=== PATIENT | female | born 1935 | race Caucasian/White ===

== ENCOUNTER 2018-01-10 13:19 | Emergency (ER) | payer MEDICARE, BC ==
[~2018-01-10] VITALS: Ht 170.2 cm; Wt 88.5 kg
[2018-01-10] MEDS ORDERED: DIPHTH/TETANUS/ACEL. PERTUSSIS 0.5 ML SYR IM ONE (13:45)
[2018-01-10] MEDS ORDERED: ASPIR 8181 MG (13:48)
[2018-01-10] MEDS ORDERED: NORVASC5 MG PO (13:48)
[2018-01-10] MEDS ORDERED: MULTI-VITAMIN1 EACH (13:48)
[2018-01-10] MEDS ORDERED: LASIX20 MG PO (13:48)
[2018-01-10] MEDS ORDERED: POTASSIUM CHLO10 ME1 PO (13:48)
[2018-01-10 15:31] VITALS: BP 145/72
== END 2018-01-10 15:35 | disposition home or self-care (01) ==
LOC: FSED 13:19
DX: S42.292A Other displaced fracture of upper end of left humerus, initial encounter for closed fracture (principal); I10 Essential (primary) hypertension; W19.XXXA Unspecified fall, initial encounter; Y92.009 Unspecified place in unspecified non-institutional (private) residence as the place of occurrence of the external cause
CPT/HCPCS: 99283

== ENCOUNTER 2018-02-23 14:53 | Outpatient (RCR) | payer MEDICARE, BC ==
[~2018-02-23 14:53] MED LIST: ASPIR 8181 MG; LASIX20 MG PO; MULTI-VITAMIN1 EACH; NORVASC5 MG PO; POTASSIUM CHLO10 ME1 PO
== END 2018-02-25 ==
LOC: PT 14:53
PROVIDERS: ATTEND Specialist
DX: S42.232D 3-part fracture of surgical neck of left humerus, subsequent encounter for fracture with routine healing (principal)
CPT/HCPCS: 97110 ×6; 97140 ×6; 97162; G8984; G8985

== ENCOUNTER → 2018-03-27 | Outpatient (RCR) | payer MEDICARE, BC | LOC: PT 02-27 14:53 | PROVIDERS: ATTEND Specialist | DX: S42.232D 3-part fracture of surgical neck of left humerus, subsequent encounter for fracture with routine healing (principal); M25.512 Pain in left shoulder; M25.612 Stiffness of left shoulder, not elsewhere classified | CPT/HCPCS: 97110 ×11; 97139 ×2; 97140 ×8; G8984; G8985 ==

== ENCOUNTER 2018-04-05 16:00 | Outpatient (RCR) | payer MEDICARE, BC | END 2018-04-27 | LOC: PT 16:00 | PROVIDERS: ATTEND Specialist | DX: S42.232D 3-part fracture of surgical neck of left humerus, subsequent encounter for fracture with routine healing (principal); M25.512 Pain in left shoulder; M25.612 Stiffness of left shoulder, not elsewhere classified | CPT/HCPCS: 97110 ×3; 97140 ×2; G8985; G8986 ==

== ENCOUNTER 2018-12-15 20:22 | Inpatient (IN) | payer BC, MEDICARE ==
[~2018-12-15] VITALS: Ht 170.2 cm; Wt 106.7 kg
[2018-12-15 21:40] LABS: BASOPHILS # (AUTO) 0.1 (0.0-0.1); BASOPHILS % 0.3 % (0.0-1.0); HEMATOCRIT 41.3 % (34.2-44.1); HEMOGLOBIN 13.7 g/dL (12.0-16.0); LYMPHOCYTES # (AUTO) 0.6 (1.0-3.2); LYMPHOCYTES % 2.4 % (18.0-39.1); MEAN CORPUSCULAR HEMOGLOBIN 31.6 pg (28-32); MEAN CORPUSCULAR HGB CONC 33.2 g/dL (31-35); MEAN CORPUSCULAR VOLUME 95.4 fL (81-99); MONOCYTES # (AUTO) 0.6 (0.2-0.8); MONOCYTES % 2.4 % (4.4-11.3); NEUTROPHILS # (AUTO) 21.4 (2.1-6.9); NEUTROPHILS % 92.9 % (38.7-80.0); PLATELET COUNT 115 x10e3/uL (140-360); RED BLOOD COUNT 4.33 x10e6/uL (3.6-5.1); RED CELL DISTRIBUTION WIDTH 15.4 % (11.7-14.4)
[2018-12-15 21:57] LABS: ALBUMIN 2.6 g/dL (3.5-5.0); ALBUMIN/GLOBULIN RATIO 0.9 (0.8-2.0); ANION GAP 15.1 mmol/L (8-16); CALCIUM 8.4 mg/dL (8.4-10.2); CREATININE, SERUM 0.95 mg/dL (0.57-1.11); POTASSIUM 3.1 mmol/L (3.5-5.1)
[2018-12-15] MEDS ORDERED: SUCRALFATE1 G/10 ML PO (22:00)
[2018-12-15 22:14] LABS: BAND NEUTROPHILS % (MANUAL) 8 %; LYMPHOCYTES % (MANUAL) 2 % (19-48); MONOCYTES % (MANUAL) 7 % (3.4-9.0); NEUTROPHILS % (MANUAL) 83 % (40-74)
[2018-12-15 22:15] LABS: ANISOCYTOSIS SLIGHT; PLATELET ESTIMATE SLIGHTLY DECREASED; PLATELET MORPHOLOGY COMMENT NORMAL; POLYCHROMASIA FEW; RBC MORPHOLOGY COMMENT ABNORMAL
--- NOTE | 2018-12-15 22:25 | Diagnostic Imaging Report ---
Exam: PA and lateral view of the thoracic spine Indication: Patient fell onto back Comparison: None Findings: Diffuse bone demineralization. The thoracic vertebral bodies are well aligned. Upper thoracic spine obscured on lateral view. Anterior bridging osteophytes. No acute fracture. Impression: No evidence of an acute thoracic spine fracture. Signed by: Dr. Maria Dolores Kim M.D. on 12/15/2018 10:10 PM
--- NOTE | 2018-12-15 22:25 | Diagnostic Imaging Report ---
EXAMINATION: Head CT without contrast. HISTORY:Status post fall. COMPARISON:None. TECHNIQUE: Multidetector axial images were obtained from the foramen magnum to the vertex without contrast. The images were reconstructed using brain and bone algorithms. Thin section brain images were reformatted into coronal and sagittal planes. Dose modulation, iterative reconstruction, and/or weight based adjustment of the mA/kV was utilized to reduce the radiation dose to as low as reasonably achievable. Intravenous contrast: None IMAGE QUALITY: Suboptimal evaluation particularly of the skull base and posterior fossa structures due to significant streak artifacts from dental amalgam. FINDINGS: Skull/scalp: No lytic or blastic. lesions. No surgical changes. Incidental hyperostosis frontalis interna. Parenchyma: Nonspecific few, scattered supratentorial white matter patchy hypodensity are likely related to small vessel ischemic changes. No acute hemorrhage, mass or acute major vascular territorial infarct. Arteries: No density suggestive of thrombosis. Atherosclerotic calcification in bilateral carotid siphon and V4 segment of the vertebral arteries. Dural sinuses: No abnormal density suggestive of thrombosis. Ventricles: No hydrocephalus or displacement. Extra-axial spaces: No abnormal density. Brain volume: Mild generalized cerebral volume loss. Craniocervical junction: No mass, Chiari malformation, or basilar invagination. Sella: No mass. Paranasal/mastoid sinuses: Imaged portions unremarkable. IMPRESSION: 1. Suboptimal evaluation due to streak artifacts particularly at the level of skull base and posterior fossa structures, despite the limitation no gross acute intracranial abnormality. 2. Mild supratentorial white matter microvascular ischemic changes. 3. Generalized age-related cerebral volume loss. Signed by: Dr. Alia Richards M.D. on 12/15/2018 10:16 PM
--- NOTE | 2018-12-15 22:26 | Diagnostic Imaging Report ---
History: Status post fall. Comparison studies: None Technique: Axial images were obtained through the cervical region.. Coronal and sagittal images reconstructed from the axial data. Dose modulation, iterative reconstruction, and/or weight based adjustment of the mA/kV was utilized to reduce the radiation dose to as low as reasonably achievable. Intravenous contrast: None Findings: Suboptimal evaluation due to motion artifacts. Fractures: No acute fracture. Well-corticated 2 mm osseous fragment at the tip of C7 spinous process, possibly a sequelae of prior trauma.. Soft tissue injuries: None. Atlantoaxial articulation: Intact. Alignment: Normal lordosis. No scoliosis. Cervicomedullary junction: No abnormalities. The foramen magnum is patent. Soft tissues: Atherosclerotic calcification in the aortic arch and carotid bulb. Vertebrae: No fractures, infection or neoplasm. Diffuse osteopenia. Degenerative changes: C2-C4: Mild right foraminal stenosis due to facet and uncovertebral arthrosis. C4-C5: Moderate left foraminal stenosis due to facet and uncovertebral arthrosis. C5-C6: Moderate degenerative disc disease. Posterior disc osteophyte complex results in mild canal stenosis. Moderate bilateral foraminal stenosis due to facet and uncovertebral arthrosis. C6-C7: Moderate degenerative disc disease. Posterior disc osteophyte complex without significant canal stenosis. Severe right and moderate left foraminal stenosis due to facet and uncovertebral arthrosis. C7-T1: Moderate left foraminal stenosis due to facet and uncovertebral arthrosis. IMPRESSION: 1. No acute cervical spine fracture or dislocation. 2. Ligament, spinal cord and or vascular abnormalities cannot be excluded on the basis of this examination. 3. Cervical spondylosis as detailed above. Signed by: Dr. Alia Richards M.D. on 12/15/2018 10:23 PM
--- NOTE | 2018-12-15 22:29 | Diagnostic Imaging Report ---
Exam: PA and lateral view of the chest Indication: Fall, back pain Comparison: None Findings: The lungs are clear. No pleural effusions or pneumothorax. Normal appearance of the heart. No acute bone findings. Focal sclerosis projected over the right scapula is likely a bone island. Impression: No acute cardiopulmonary abnormality. Signed by: Dr. Maria Dolores Kim M.D. on 12/15/2018 10:26 PM
[2018-12-15] MEDS ORDERED: POTASSIUM CHLORIDE 20 MEQ TAB CR PO STA (22:41)
[2018-12-15] MEDS: SODIUM CHLORIDE 0.9% 1000ML 1,000 ML IV SCH ×2 (22:41→23:37)
[2018-12-15] MEDS ORDERED: CEFTRIAXONE SOD 1 GM/NS 50 ML 50 ML IV ONE (22:45)
--- OUTSIDE RECORDS SUMMARY | 2018-12-15 22:57 | XMS REPORT ---
Author Author [facility] Address Unknown Phone Unavailable Care Team Providers Care Patient Care Associate Name Role Phone Clifton GIL Unavailable Unavailable Problems This patient has no known problems. Allergies, Adverse Reactions, Alerts This patient has no known allergies or adverse reactions. Medications This patient has no known medications. Results Test Description Test Time Test Comments Text Results Atomic Results Result Comments CXR 2 [facility] 2018-12-15 22:24:00 [place] [address] Patient Name: TOR PEREZ MR #: [id number] : 1935 Age/Sex: 83/F Req #: [id number] Adm Physician: Ordered by: PRAVEENA GIL MD Report #: [id number] Location: [facility] Room/Bed: Procedure: [id number] HOPD/CXR 2 [facility] Exam Date: 12/15/18 Exam Time: 2215 REPORT STATUS: Signed Exam: PA and lateral view of the chest Indication: Fall, back pain Comparison: None Findings: The lungs are clear. No pleural effusions or pneumothorax. Normal appearance of the heart. No acute bone findings. Focal sclerosis projected over the right scapula is likely a bone island. Impression: No acute cardiopulmonary abnormality. Signed by: Dr. Dean Kim M.D. on 12/15/2018 10:26 PM Dictated By: DEAN KIM MD 25 Transcribed By: NORMA on 12/15/182225 COPY TO: PRAVEENA IGL MD CT C-SPINE W/O - HOPD 2018-12-15 22:16:00 [place] [address] Patient Name: TOR PEREZ MR #: [id number] : 1935 Age/Sex: 83/F Req #: [id number] Adm Physician: Ordered by: PRAVEENA GIL MD Report #: [id number] Location: [facility] Room/Bed: Procedure: [id number] HOPD/CT C-SPINE W/O - HOPD Exam Date: 12/15/18 Exam Time: 2139 REPORT STATUS: Signed History: Status post fall. Comparison studies: None Technique: Axial images were obtained through the cervical region.. Coronal and sagittal images reconstructed from the axial data. Dose modulation, iterative reconstruction, and/or weight based adjustment of the mA/kV was utilized to reduce the radiation dose to as low as reasonably achievable. Intravenous contrast: None Findings: Suboptimal evaluation due to motion artifacts. Fractures: No acute fracture. Well- corticated 2 mm osseous fragment at the tip of C7 spinous process, possibly a sequelae of prior trauma.. Soft tissue injuries: None. Atlantoaxial articulation: Intact. Alignment: Normal lordosis. No scoliosis. Cervicomedullary junction: No abnormalities. The foramen magnum is patent. Soft tissues: Atherosclerotic calcification in the aortic arch and carotid bulb. Vertebrae: No fractures, infection or neoplasm. Diffuse osteopenia. Degenerative changes: C2-C4: Mild right foraminal stenosis due to facet and uncovertebral arthrosis. C4-C5: Moderate left foraminal stenosis due to facet and uncovertebral arthrosis. C5-C6: Moderate degenerative disc disease. Posterior disc osteophyte complex results in mild canal stenosis. Moderate bilateral foraminal stenosis due to facet and uncovertebral arthrosis. C6-C7: Moderate degenerative disc disease. Posterior disc osteophyte complex without significant canal stenosis. Severe right and moderate left foraminal stenosis due to facet and uncovertebral arthrosis. C7-T1: Moderate left foraminal stenosis due to facet and uncovertebral arthrosis. IMPRESSION: 1. No acute cervical spine fracture or dislocation. 2. Ligament, spinal cord and or vascular abnormalities cannot be excluded on the basis of this examination. 3. Cervical spondylosis as detailed above. Signed by: Dr. Alai Richards M.D. on 12/15/2018 10:23 PM Dictated By: ALIA RICHARDS MD 22 Transcribed By: NORMA on 12/15/182222 COPY TO: PRAVEENA GIL MD CT BRAIN WO-HOPD 2018-12-15 22:12:00 [place] [address] Patient Name: TOR PEREZ MR #: [id number] : 1935 Age/Sex: 83/F Req #: [id number] Adm Physician: Ordered by: PRAVEENA GIL MD Report #: [id number] Location: [facility] Room/Bed: Procedure: [id number] HOPD/CT BRAIN WO-HOPD Exam Date: 12/15/18 Exam Time: 2139 REPORT STATUS: Signed EXAMINATION: Head CT without contrast. HISTORY:Status post fall. COMPARISON:None. TECHNIQUE: Multidetector axial images were obtained from the foramen magnum to the vertex without contrast. The images were reconstructed using brain and bone algorithms. Thin section brain images were reformatted into coronal and sagittal planes. Dose modulation, iterative reconstruction, and/or weight based adjustment of the mA/kV was utilized to reduce the radiation dose to as low as reasonably achievable. Intravenous contrast: None IMAGE QUALITY: Suboptimal evaluation particularly of the skull base and posterior fossa structures due to significant streak artifacts from dental amalgam. FINDINGS: Skull/scalp: No lytic or blastic. lesions. No surgical changes. Incidental hyperostosis frontalis interna. Parenchyma: Nonspecific few, scattered supratentorial white matter patchy hypodensity are likely related to small vessel ischemic changes. No acute hemorrhage, mass or acute major vascular te rritorial infarct. Arteries: No density suggestive of thrombosis. Atherosclerotic calcification in bilateral carotid siphon and V4 segment of the vertebral arteries. Dural sinuses: No abnormal density suggestive of thrombosis. Ventricles: No hydrocephalus or displacement. Extra- axial spaces: No abnormal density. Brain volume: Mild generalized cerebral volume loss. Craniocervical junction: No mass, Chiari malformation, or basilar invagination. Sella: No mass. Paranasal/mastoid sinuses: Imaged portions unremarkable. IMPRESSION: 1. Suboptimal evaluation due to streak artifacts particularly at the level of skull base and posterior fossa structures, despite the limitation no gross acute intracranial abnormality. 2. Mild supratentorial white matter microvascular ischemic changes. 3. Generalized age-related cerebral volume loss. Signed by: Dr. Alia Richards M.D. on 12/15/2018 10:16 PM Dictated By: ALIA RICHARDS MD 15 Transcribed By: NORMA on 12/15/182215 COPY TO: PRAVEENA GIL MD [facility] 2018-12-15 22:08:00 [place] [address] Patient Name: TOR PEREZ MR #: [id number] : 1935 Age/Sex: 83/F Req #: [id number] [facility] Physician: Ordered by: PRAVEENA GIL MD Report #: [id number] Location: [facility] Room/Bed: Procedure: [id number] HOPD/T SPINE 2VW - HOPD Exam Date: 12/15/18 Exam Time: 2139 REPORT STATUS: Signed Exam: PA and lateral view of the thoracic spine Indication: Patient fell onto back Comparison: None Findings: Diffuse bone demineralization. The thoracic vertebral bodies are well aligned. Upper thoracic spine obscured on lateral view. Anterior bridging osteophytes. No acute fracture. Impression: No evidence of an acute thoracic spine fracture. Signed by: Dr. Dean Kim M.D. on 12/15/2018 10:10 PM Dictated By: DEAN KIM MD 09 Transcribed By: NORMA on 12/15/182209 COPY TO: PRAVEENA GIL MD
--- NOTE | 2018-12-15 23:09 | NUR ---
[facility] called for transport - eta 30 mins
[2018-12-16] VITALS (8 sets, daily range): BP systolic 109–143; BP diastolic 55–70
--- NOTE | 2018-12-16 00:40 | NUR ---
Admitted Pt to room 295 via stretcher. Alert to name and place. Skim warm and dry. Left foot swollen, warm, and pain to touch. Refuses pain medication and ice. Elevated on x2 pillow. 20g IV to right AC, NS @125ml/hr. Resp even and unlabored, denies SOB. Cap refill<3 secs. Equal bilateral hand yardage caller +2. VS stable, o2 sat 97% on RA. abdomen round, soft, and distended, denies abd pain. c/o x3 days loose stools. c/o urinary dribbling usu wears pads. S/p fall bruises noted to left thigh lateral, bilateral posterior thighs, sacrum, and spine. Denies pain to bruised area. Family at bedside. Oriented to call light. Bed locked and in low position. Will continue to monitor.
[2018-12-16] MEDS: SODIUM CHLORIDE 0.9% 1000ML 1,000 ML IV SCH ×2 (01:49→11:20)
--- NOTE | 2018-12-16 05:48 | NUR ---
Left foot swollen and pain to touch. Order received TAB Lara/Dr. Olivares xray left foot.
[2018-12-16] MEDS ORDERED: PRESERVISION A1 EACH (06:43)
--- NOTE | 2018-12-16 07:13 | Diagnostic Imaging Report ---
LEFT FOOT - 3 Images HISTORY: Fall, pain COMPARISON: None available. FINDINGS: Sensitivity limited by portable technique. Bones: Diffusely decreased mineralization of the osseous structures limits bone detail. On the oblique view, a subtle cortical step-off at the medial aspect of the base of the fourth proximal phalanx. Attenuation of the distal aspect of the fifth proximal phalanx, likely postsurgical. Joints: Mild to moderate scattered degenerative changes, most notably the midfoot and tarsometatarsal joints. Soft tissues: Diffuse soft tissue swelling. IMPRESSION: 1. Questionable nondisplaced fracture involving the base of the fourth proximal phalanx, correlate for focal point tenderness. 2. Diffuse demineralization, if pain persists, recommend routine 3 view foot radiographs in 10-14 days to assess for a nondisplaced fracture. Signed by: Dr. Simeon Joe D.O., M.M.M. on 12/16/2018 7:09 AM
[2018-12-16 10:00] LABS: BASOPHILS % 0.2 % (0.0-1.0); HEMATOCRIT 38.1 % (34.2-44.1); HEMOGLOBIN 12.8 g/dL (12.0-16.0); LYMPHOCYTES # (AUTO) 0.5 (1.0-3.2); LYMPHOCYTES % 2.8 % (18.0-39.1); MEAN CORPUSCULAR HEMOGLOBIN 31.4 pg (28-32); MEAN CORPUSCULAR HGB CONC 33.6 g/dL (31-35); MEAN CORPUSCULAR VOLUME 93.4 fL (81-99); MONOCYTES # (AUTO) 0.9 (0.2-0.8); MONOCYTES % 5.2 % (4.4-11.3); NEUTROPHILS # (AUTO) 16.4 (2.1-6.9); NEUTROPHILS % 90.7 % (38.7-80.0); PLATELET COUNT 106 x10e3/uL (140-360); RED BLOOD COUNT 4.08 x10e6/uL (3.6-5.1); RED CELL DISTRIBUTION WIDTH 15.2 % (11.7-14.4)
[2018-12-16 10:14] LABS: ANION GAP 12.7 mmol/L (8-16); BLOOD UREA NITROGEN 19 mg/dL (7-26); BUN/CREATININE RATIO 26 (6-25); CALCIUM 8.1 mg/dL (8.4-10.2); CARBON DIOXIDE 19 mmol/L (22-29); CHLORIDE 106 mmol/L (98-107); CREATININE, SERUM 0.74 mg/dL (0.57-1.11); EST GLOMERULAR FILTRATION RATE > 60 ML/MIN (60-); GLUCOSE 103 mg/dL (74-118); MAGNESIUM 1.6 MG/DL (1.3-2.1); POTASSIUM 3.7 mmol/L (3.5-5.1); SODIUM 134 mmol/L (136-145)
[2018-12-16 10:33] LABS: ALBUMIN 2.3 g/dL (3.5-5.0); BILIRUBIN,DIRECT 1.3 mg/dL (0.0-0.5)
--- NOTE | 2018-12-16 12:50 | NUR ---
Nutrition Screen Note RD Recommendation for Physician: Continue diet as ordered Plan of Care: RD following, monitoring for adequacy and tolerance Nutrition reason for involvement: Nutrition Risk Trigger-MST Primary Diagnose(s): UTI Ht:67 in Wt:231.44lbs BMI:36.2 kg/m2 IBW:231.44lbs RD Assessment:(12/16/2018) Pt is eating well - about 75% of meal tray. No Nausea, vomiting or diarrhea. No difficulty chewing or swallowing. Current Diet: Cardiac Malnutrition Evaluation (12/16/2018) The patient does not meet criteria for a specified degree of malnutrition at this time. Will re-evaluate at follow-up as appropriate. Diet Education Needs Assessment: Diet education not indicated. Diet Adequacy: Meeting calorie needs, Meeting protein needs, Meeting fluid needs Tolerance: Tolerating PO Nutrition Care Level:Low Momo Mooney RD, LD, [facility] Addendum: 12/16/18 at 1305 by Momo Mooney DIET IBW is 135 pounds
--- NOTE | 2018-12-16 13:40 | NUR ---
SOCIAL WORK INITIAL ASSESSMENT Learning And Development Administrator to bedside to discuss plan of care with patient/family. CM/SW role and care transitions discussed. Anticipated discharge plan discussed along with duration of care. CM/SW discussed patients right to make decisions in care. CM/SW work hours given. Patient lives: IN HOUSE BY SELF Admit/Transfer: VIA ED FROM HOME POA/Emergency contact: DAUGHTER GEORGIE [phone] Current/Previous Home Health: NONE PCP/Follow-up Care: STATES HER MD IS IN [place] AND NEEDS ONE IN THIS AREA, STATES IF LIKE LIZZY WILL KEEP HIM. Current/Previous DME: HAS A WHEELCHAIR SHE IS EITHER PUSHING AROUND OR BEING PUSHED IN FOR LONG DISTANCES BY BROTHER. STATES HAS A WALKER BUT DOES NOT USE Other Services: NONE Employment Status: RETIRED Areas of Concerns: NONE Referral Needs: NONE Education Needs: NONE IMM/MCKEON given and signed (if applicable): NA Goal for discharge: RETURN HOME CM/SW left business card at the bedside with contact information. Name and number was also written on the patients whiteboard. Patient verbalized understanding of discussion. CM will follow-up with ongoing discharge and transition of care needs.
[2018-12-16 14:48] LABS: CREATINE KINASE MB 4.8 ng/mL (0-5.0)
[2018-12-16] MEDS: OYST-CAL-D 500MG TABLET PO SCH (17:24)
--- NOTE | 2018-12-16 18:23 | NUR ---
PT IN BED RESTING, DAUGHTER IN ROOM DENIES PAIN ALL SHIFT, OUT OF BED THIS AFTERNOON WITH PT. NO DISTRESS NOTED
--- NOTE | 2018-12-16 19:10 | NUR ---
Patient visited in room during nursing rounds. Patient alert and oriented x2. Patient appears to forget some recent memory but easily re-oriented and appear very pleasant in demeanor. Currently on IVF (NS @50ml/hr) and will continue to monitor closely. Bruise noted on left hip (post fall at home). Call phillip within reach.
--- NOTE | 2018-12-16 20:53 | NUR ---
Called and spoke with Dr. Olivares to obtain orders for straight cath (to obtain urine sample for UA), start pt on IV Rocephin 1gm Q12hr, and Nystatin powder for yeast infection on groin.
[2018-12-16] MEDS: CEFTRIAXONE SOD 1 GM/NS 50 ML 50 ML IV SCH (22:00)
[2018-12-16 22:56] LABS: BILIRUBIN,URINE NEGATIVE (NEGATIVE); CLARITY,URINE HAZY (CLEAR); COLOR,URINE YELLOW (YELLOW); KETONES,URINE NEGATIVE (NEGATIVE); LEUKOCYTE ESTERASE ,URINE NEGATIVE (NEGATIVE); NITRITE,URINE NEGATIVE (NEGATIVE); PROTEIN,URINE DIPSTICK NEGATIVE (NEGATIVE); URINE UROBILINOGEN 0.2 mg/dL (0.2 - 1)
[2018-12-16] MEDS: NYSTATIN 15 GM POWDER UD BTL TOP SCH (23:00)
[2018-12-16 23:02] LABS: AMORPHOUS SEDIMENT,URINE FEW (FEW); BACTERIA,URINE MODERATE /HPF; EPITHELIAL CELLS,URINE FEW /LPF; HYALINE CASTS 0-1 (0-1); MUCUS,URINE FEW (RARE); RBC,URINE 0-5 /HPF (0-5); WBC,URINE (MAN) 0-5 /HPF (0-5)
[2018-12-17] VITALS (7 sets, daily range): BP systolic 148–188; BP diastolic 65–85
[2018-12-17 04:00] LABS: BASOPHILS # (AUTO) 0.1 (0.0-0.1); BASOPHILS % 0.5 % (0.0-1.0); EOSINOPHILS % 0.2 % (0.0-6.0); HEMOGLOBIN 12.4 g/dL (12.0-16.0); LYMPHOCYTES # (AUTO) 0.9 (1.0-3.2); LYMPHOCYTES % 6.1 % (18.0-39.1); MEAN CORPUSCULAR HEMOGLOBIN 31.3 pg (28-32); MEAN CORPUSCULAR HGB CONC 33.5 g/dL (31-35); MEAN CORPUSCULAR VOLUME 93.4 fL (81-99); MONOCYTES # (AUTO) 1.4 (0.2-0.8); MONOCYTES % 9.4 % (4.4-11.3); NEUTROPHILS # (AUTO) 12.5 (2.1-6.9); NEUTROPHILS % 82.4 % (38.7-80.0); PLATELET COUNT 110 x10e3/uL (140-360); RED BLOOD COUNT 3.96 x10e6/uL (3.6-5.1)
[2018-12-17 04:21] LABS: ALANINE AMINOTRANSFERASE 20 IU/L (0-55); ALBUMIN 2.1 g/dL (3.5-5.0); ALKALINE PHOSPHATASE 78 IU/L (40-150); ANION GAP 10.4 mmol/L (8-16); BLOOD UREA NITROGEN 17 mg/dL (7-26); BUN/CREATININE RATIO 26 (6-25); CARBON DIOXIDE 22 mmol/L (22-29); CHLORIDE 105 mmol/L (98-107); CREATINE KINASE 134 IU/L (29-168); CREATININE, SERUM 0.66 mg/dL (0.57-1.11); EST GLOMERULAR FILTRATION RATE > 60 ML/MIN (60-); GLUCOSE 108 mg/dL (74-118); MAGNESIUM 1.6 MG/DL (1.3-2.1); POTASSIUM 3.4 mmol/L (3.5-5.1); SODIUM 134 mmol/L (136-145)
[2018-12-17] MEDS ORDERED: POTASSIUM CHLORIDE 20 MEQ TAB CR PO STA (07:38)
[2018-12-17] MEDS ORDERED: ACETAMINOPHEN/CODEINE 300MG - 30MG TAB PO PRN (07:45)
[2018-12-17] MEDS: OYST-CAL-D 500MG TABLET PO SCH ×2 (09:13→16:25)
[2018-12-17] MEDS: CEFTRIAXONE SOD 1 GM/NS 50 ML 50 ML IV SCH ×2 (09:13→21:31)
[2018-12-17] MEDS: NYSTATIN 15 GM POWDER UD BTL TOP SCH ×2 (09:13→16:25)
[2018-12-17] MEDS ORDERED: ACETAMINOPHEN 325 MG TAB PO PRN (17:15)
[2018-12-17] MEDS: AMLODIPINE BESYLATE 10 MG TAB PO SCH (17:15)
[2018-12-17] MEDS ORDERED: ONDANSETRON HCL INJ 2MG/ML 2ML 2 MG/ML VIAL IV PRN (17:15)
--- NOTE | 2018-12-17 18:34 | NUR ---
PT CONTINUE ON IV ANTIBIOTICS, AFEBRILE, DENIES PAIN ,FAMILY IN MOST OF SHIFT. INCONTINENT CARE PROVIDED NEEDED.
--- NOTE | 2018-12-17 19:12 | NUR ---
Patient visited in room during nursing rounds. Patient alert and oriented x3. Patient appears more sharp in memory today compared to yesterday. On scheduled IV antibiotic (Rocephin 1gm). Daughter at bedside visiting. Bruise noted on left hip (post fall at home) subsiding. Call phillip within reach.
[2018-12-17] MEDS ORDERED: SODIUM CHLORIDE 0.9% 250ML 250 ML ONE (21:20)
[2018-12-18] VITALS (7 sets, daily range): BP systolic 145–172; BP diastolic 69–80
[2018-12-18] MEDS: HYDRALAZINE HCL 20 MG/ML VIAL IV PRN (00:42)
[2018-12-18 03:56] LABS: BASOPHILS # (AUTO) 0.1 (0.0-0.1); BASOPHILS % 0.7 % (0.0-1.0); EOSINOPHILS # (AUTO) 0.1 (0.0-0.4); EOSINOPHILS % 0.6 % (0.0-6.0); HEMATOCRIT 36.4 % (34.2-44.1); LYMPHOCYTES # (AUTO) 1.1 (1.0-3.2); MEAN CORPUSCULAR HEMOGLOBIN 32.2 pg (28-32); MEAN CORPUSCULAR HGB CONC 35.7 g/dL (31-35); MONOCYTES # (AUTO) 1.4 (0.2-0.8); MONOCYTES % 10.9 % (4.4-11.3); NEUTROPHILS # (AUTO) 9.6 (2.1-6.9); PLATELET COUNT 130 x10e3/uL (140-360); RED BLOOD COUNT 4.04 x10e6/uL (3.6-5.1)
[2018-12-18 03:59] LABS: MEAN CORPUSCULAR VOLUME 90.1 fL (81-99)
[2018-12-18 04:13] LABS: ANION GAP 9.2 mmol/L (8-16); BLOOD UREA NITROGEN 12 mg/dL (7-26); BUN/CREATININE RATIO 21 (6-25); CALCIUM 8.3 mg/dL (8.4-10.2); CARBON DIOXIDE 22 mmol/L (22-29); CHLORIDE 105 mmol/L (98-107); CREATININE, SERUM 0.58 mg/dL (0.57-1.11); EST GLOMERULAR FILTRATION RATE > 60 ML/MIN (60-); GLUCOSE 108 mg/dL (74-118); MAGNESIUM 1.5 MG/DL (1.3-2.1); POTASSIUM 3.2 mmol/L (3.5-5.1); SODIUM 133 mmol/L (136-145)
--- NOTE | 2018-12-18 07:27 | NUR ---
PATIENT IN BED WITH HEAD OF BED ELEVATED WATCHING TV, NO RESPIRATORY DISTRESS OBSERVED. DENIED PAIN, +2 EDEMA TO LOWER EXTREMITIES. TELEMETRY BOX [address] BED IN LOWER POSITION, CALL LIGHT AT REACH.
[2018-12-18] MEDS ORDERED: POTASSIUM CHLORIDE 20 MEQ TAB CR PO ONE (08:30)
[2018-12-18] MEDS: CEFTRIAXONE SOD 1 GM/NS 50 ML 50 ML IV SCH ×2 (09:41→20:32)
[2018-12-18] MEDS: NYSTATIN 15 GM POWDER UD BTL TOP SCH ×2 (09:41→17:39)
[2018-12-18] MEDS: AMLODIPINE BESYLATE 10 MG TAB PO SCH (09:41)
[2018-12-18] MEDS: FUROSEMIDE 20 MG TAB PO SCH (09:41)
[2018-12-18] MEDS: OYST-CAL-D 500MG TABLET PO SCH ×2 (09:41→17:39)
--- NOTE | 2018-12-18 12:29 | NUR ---
PATIENT ASSISTED TO THE RESTROOM AND BACK TO BED. HAD A LARGE BM. IN BED WITH CALL LIGHT AT REACH.
--- NOTE | 2018-12-18 14:50 | NUR ---
SPOKE WITH PATIENT AND DAUGHTER SHE SIGNED CHOICE FOR MEDICAL RESORT [facility], [address] [place] [address]. [phone] FAX [phone]. FILED IN CHART. FAXED CLINICALS.
--- NOTE | 2018-12-18 15:00 | NUR ---
BED SIDE VENOUS DOPPLER COMPLETED AT THIS TIME. PATIENT SITTING AT BED SIDE TALKING TO FAMILY MEMBER VISITING. CALL LIGHT AT REACH.
--- NOTE | 2018-12-18 16:09 | NUR ---
SIGNED IMM LEFT COPY AT BEDSIDE AND FILED SIGNED COPY IN CHART. FILLED OUT RTF FOR MEDICAL RESORT AND LEFT IN PACKET AT NURSES STATION FOR TRANSFER ADVISED SW PORTION COMPLETED AT THIS TIME.
--- NOTE | 2018-12-18 20:11 | NUR ---
PATIENT RESTING IN BED, RECEIVED REPORT FROM 7AM NURSE, CALL LIGHT IN REACH. WILL CONTINUE TO MONITOR.
[2018-12-19] VITALS (8 sets, daily range): BP systolic 126–185; BP diastolic 67–79
[2018-12-19 05:58] LABS: BASOPHILS # (AUTO) 0.1 (0.0-0.1); BASOPHILS % 0.6 % (0.0-1.0); EOSINOPHILS # (AUTO) 0.1 (0.0-0.4); EOSINOPHILS % 0.5 % (0.0-6.0); HEMATOCRIT 40.9 % (34.2-44.1); HEMOGLOBIN 13.5 g/dL (12.0-16.0); LYMPHOCYTES # (AUTO) 0.9 (1.0-3.2); MEAN CORPUSCULAR HEMOGLOBIN 30.8 pg (28-32); MEAN CORPUSCULAR VOLUME 93.4 fL (81-99); MONOCYTES # (AUTO) 1.5 (0.2-0.8); MONOCYTES % 11.4 % (4.4-11.3); NEUTROPHILS % 78.5 % (38.7-80.0); PLATELET COUNT 147 x10e3/uL (140-360); RED BLOOD COUNT 4.38 x10e6/uL (3.6-5.1); RED CELL DISTRIBUTION WIDTH 15.2 % (11.7-14.4)
[2018-12-19 06:17] LABS: ANION GAP 11.4 mmol/L (8-16); BLOOD UREA NITROGEN 9 mg/dL (7-26); BUN/CREATININE RATIO 16 (6-25); CALCIUM 8.2 mg/dL (8.4-10.2); CARBON DIOXIDE 22 mmol/L (22-29); CHLORIDE 104 mmol/L (98-107); CREATININE, SERUM 0.57 mg/dL (0.57-1.11); EST GLOMERULAR FILTRATION RATE > 60 ML/MIN (60-); GLUCOSE 122 mg/dL (74-118); MAGNESIUM 1.6 MG/DL (1.3-2.1); POTASSIUM 3.4 mmol/L (3.5-5.1); SODIUM 134 mmol/L (136-145)
--- NOTE | 2018-12-19 06:58 | NUR ---
PATIENT RESTING IN BED, REPORT GIVEN TO 7AM NURSE.
--- NOTE | 2018-12-19 07:15 | NUR ---
PATIENT IN BED RESTING WITH NO RESPIRATORY DISTRESS. REDNESS AND SWELLING TO LEFT FOOT, ELEVATED ON PILLOW. BED IN LOWER POSITION, CALL LIGHT AT REACH.
[2018-12-19] MEDS ORDERED: POTASSIUM CHLORIDE 20 MEQ TAB CR PO STA (08:07)
[2018-12-19] MEDS: AMLODIPINE BESYLATE 10 MG TAB PO SCH (09:07)
[2018-12-19] MEDS: CEFTRIAXONE SOD 1 GM/NS 50 ML 50 ML IV SCH ×2 (09:07→21:13)
[2018-12-19] MEDS: FUROSEMIDE 20 MG TAB PO SCH (09:07)
[2018-12-19] MEDS: POTASSIUM CHLORIDE 20 MEQ TAB CR PO SCH (09:07)
[2018-12-19] MEDS: OYST-CAL-D 500MG TABLET PO SCH ×2 (09:07→17:25)
[2018-12-19] MEDS: NYSTATIN 15 GM POWDER UD BTL TOP SCH ×2 (09:08→17:25)
[2018-12-19] MEDS: VANCOMYCIN 1GM/NS 250 ML 250 ML IV SCH (10:13)
--- NOTE | 2018-12-19 10:20 | NUR ---
SPOKE WITH BUS TROLLEY AND TAXI INSTRUCTOR REGARDING INCREASED REDNESS TO LEFT FOOT, NEW ORDERS RECEIVED.
--- NOTE | 2018-12-19 15:46 | NUR ---
PATIENT AMBULATING IN THE ROOM WITH PHYSICAL THERAPY, NO RESPIRATORY DISTRESS OBSERVED. WILL CONTINUE TO MONITOR.
--- NOTE | 2018-12-19 16:51 | NUR ---
PER YANELIS WITH DR BALL PT'S SNF TRANSFER ON HOLD FOR APPROX 2 MORE DAYS DUE TO FEVER WANTS TO MONITOR HER ON IV ABX BEFORE TRANSFER
--- NOTE | 2018-12-19 21:52 | Consultation ---
DATE OF CONSULTATION: December 19, 2018 REASON FOR CONSULTATION: Cellulitis of the left leg. HISTORY OF PRESENT ILLNESS: This patient who is a very pleasant and charming 83-year-old female comes into the emergency room with redness and swelling of her left leg. No specific trauma. The patient has history of obesity, history of osteoarthritis. The patient apparently comes in with redness and swelling of her leg. Patient was started on Rocephin initially; however, there was no significant improvement. Infectious disease was asked to see her. The patient is currently lying in bed comfortably. Patient is currently on vancomycin and ceftriaxone. Her blood cultures are showing streptococcus group . On physical examination, she is currently alert, oriented, does not seem to be in acute distress. Her vitals are stable, currently afebrile. HEENT: She is not icteric. Neck: Supple. Chest: Clear. Heart: No murmur. Abdomen: Soft. Bowel sounds present. No tenderness. Extremities: leg there is redness and swelling. PAST MEDICAL HISTORY: Hypertension. PAST SURGICAL HISTORY: Denies. ALLERGIES: NKA. SOCIAL HISTORY: There is no smoking, drug abuse, or alcohol abuse. FAMILY HISTORY: Unremarkable. LABORATORY DATA: Reviewed. When she first came, her white count was 23, came down to 12.8. Hemoglobin of 13, hematocrit of 41. Her sodium of 134, potassium 3.4, glucose 122. The patient is currently on vancomycin 1 g q.24 and ceftriaxone 1 g q.12. PHYSICAL EXAMINATION GENERAL: She is currently alert, oriented, does not seem to be in acute distress. VITAL SIGNS: Stable, currently afebrile. HEENT: She is not icteric. CHEST: Clear. HEART: No murmur. ABDOMEN: Soft. Bowel sounds present. No tenderness. EXTREMITIES: No edema. SKIN: No rash. She does have redness and swelling of her left lower extremity. IMPRESSIONS 1. Cellulitis of the left lower extremity. 2. Bacteremia with streptococcus group . PLAN: Agree with Rocephin 1 g q.12. Echocardiogram was ordered, still pending. The source probably is cellulitis. I would suggest to continue with Rocephin 1 g q.12 for now. Recheck her blood cultures. Recheck CBC. Recheck chem panel. Will discuss with internal medicine. Will follow with you. Job#: [id number]
[2018-12-20] VITALS (7 sets, daily range): BP systolic 125–165; BP diastolic 60–70
--- NOTE | 2018-12-20 00:24 | Consultation ---
DATE OF CONSULTATION: REASON FOR CONSULTATION: Osteomyelitis of the foot. HISTORY: This patient who is INCOMPLETE REPORT Job#: [id number]
[2018-12-20 03:05] LABS: BASOPHILS # (AUTO) 0.1 (0.0-0.1); BASOPHILS % 0.5 % (0.0-1.0); EOSINOPHILS # (AUTO) 0.2 (0.0-0.4); EOSINOPHILS % 1.7 % (0.0-6.0); HEMATOCRIT 37.3 % (34.2-44.1); HEMOGLOBIN 12.6 g/dL (12.0-16.0); LYMPHOCYTES # (AUTO) 1.1 (1.0-3.2); LYMPHOCYTES % 9.7 % (18.0-39.1); MEAN CORPUSCULAR HEMOGLOBIN 31.6 pg (28-32); MEAN CORPUSCULAR HGB CONC 33.8 g/dL (31-35); MEAN CORPUSCULAR VOLUME 93.5 fL (81-99); MONOCYTES # (AUTO) 1.6 (0.2-0.8); NEUTROPHILS # (AUTO) 8.1 (2.1-6.9); NEUTROPHILS % 71.9 % (38.7-80.0); PLATELET COUNT 146 x10e3/uL (140-360); RED BLOOD COUNT 3.99 x10e6/uL (3.6-5.1)
[2018-12-20 03:23] LABS: ANION GAP 9.4 mmol/L (8-16); BLOOD UREA NITROGEN 10 mg/dL (7-26); BUN/CREATININE RATIO 17 (6-25); CALCIUM 7.9 mg/dL (8.4-10.2); CARBON DIOXIDE 23 mmol/L (22-29); CHLORIDE 103 mmol/L (98-107); CREATININE, SERUM 0.59 mg/dL (0.57-1.11); EST GLOMERULAR FILTRATION RATE > 60 ML/MIN (60-); GLUCOSE 164 mg/dL (74-118); MAGNESIUM 1.6 MG/DL (1.3-2.1); POTASSIUM 3.4 mmol/L (3.5-5.1); SODIUM 132 mmol/L (136-145)
[2018-12-20] MEDS: HYDRALAZINE HCL 20 MG/ML VIAL IV PRN (05:21)
[2018-12-20 07:08] LABS: EOSINOPHILS % (MANUAL) 1 % (0-7); LYMPHOCYTES % (MANUAL) 16 % (19-48); MONOCYTES % (MANUAL) 10 % (3.4-9.0); NEUTROPHILS % (MANUAL) 72 % (40-74)
[2018-12-20 07:09] LABS: ANISOCYTOSIS SLIGHT; PLATELET ESTIMATE SLIGHTLY DECREASED; PLATELET MORPHOLOGY COMMENT FEW LARGE; RBC MORPHOLOGY COMMENT NORMAL
--- NOTE | 2018-12-20 08:36 | NUR ---
SPOKE WITH TAB HILARIO FOR DR BALL THIS MORNING ABOUT TRANSFER TO SNF SHE STATES PT CAN GO WHEN IV ABX DETERMINED BY DR GOMEZ CM CALLED DR GOMEZ AND HE WANTS PT TO HAVE 14 DAYS TOTAL OF ROCEPHIN D/W YANELIS WHO STATES PT WAS ALREADY ON ROCEPHIN AND SHE WILL SPEAK WITH DR GOMEZ ABOUT IV ABX
[2018-12-20] MEDS: NYSTATIN 15 GM POWDER UD BTL TOP SCH ×2 (09:14→18:56)
[2018-12-20] MEDS: OYST-CAL-D 500MG TABLET PO SCH ×2 (09:14→16:54)
[2018-12-20] MEDS: FUROSEMIDE 20 MG TAB PO SCH (09:15)
[2018-12-20] MEDS: CEFTRIAXONE SOD 1 GM/NS 50 ML 50 ML IV SCH (09:15)
[2018-12-20] MEDS: VANCOMYCIN 1GM/NS 250 ML 250 ML IV SCH (09:15)
[2018-12-20] MEDS: AMLODIPINE BESYLATE 10 MG TAB PO SCH (09:15)
[2018-12-20] MEDS: POTASSIUM CHLORIDE 20 MEQ TAB CR PO SCH (09:15)
--- NOTE | 2018-12-20 09:15 | NUR ---
Pt received resting in bed. Alert and oriented x3, noted left leg redness & swelling. Oriented to staff and surroundings. Encouraged to press call phillip if help needed. All meds given as ordered. Call phillip within reach. Will monitor closely.
[2018-12-20] MEDS ORDERED: FUROSEMIDE INJ 10 MG/ML 4 ML VIAL IV ONE (10:15)
[2018-12-20] MEDS ORDERED: POTASSIUM CHLORIDE 20 MEQ TAB CR PO ONE (10:50)
--- NOTE | 2018-12-20 14:46 | Diagnostic Imaging Report ---
Exam: Left lower extremity - 3 views History: Status post fall. Comparison: Left foot radiographs 12/16/2018. Findings: No evidence of acute displaced fracture or malalignment within the tibia or fibula. 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 Mild degenerative changes are present at the medial tibiotalar joint. Ankle mortise is preserved. Soft tissue edema is present in the medial and lateral ankle. Atherosclerotic vascular calcifications. Impression: No evidence of acute fracture or malalignment. Soft tissue edema in the ankle without definite osseous abnormality. Likely sequela of prior trauma involving the medial malleolus. Dedicated ankle radiographs may be considered for further evaluation. Signed by: Dr. Shaun Crenshaw MD on 12/20/2018 2:43 PM
--- NOTE | 2018-12-20 19:10 | NUR ---
department secretary paged dr el. pt's daughter wants to speak to doctor regarding iv abx. will await call back.
--- NOTE | 2018-12-20 22:24 | NUR ---
spoke with desmond at dr le answering service. will await call back.
--- NOTE | 2018-12-20 23:00 | NUR ---
DR GOMEZ CALLED BACK. INFORMED HIM PT'S DAUGHTER IS WANTING TO SPEALK TO HIM. GAVE HIM DAUGHTER'S NAME AND PHONE NUMBER.
--- NOTE | 2018-12-20 23:30 | NUR ---
DR GOMEZ CALLED BACK. ORDERED MRI OF THE ENTIRE LEFT LOWER EXTREMITY, ROUTINE FOR 12/21/18 AM.
[2018-12-21] VITALS (8 sets, daily range): BP systolic 137–175; BP diastolic 18–71
[2018-12-21 05:59] LABS: BASOPHILS # (AUTO) 0.1 (0.0-0.1); BASOPHILS % 0.7 % (0.0-1.0); EOSINOPHILS # (AUTO) 0.3 (0.0-0.4); EOSINOPHILS % 3.6 % (0.0-6.0); HEMATOCRIT 38.1 % (34.2-44.1); HEMOGLOBIN 12.6 g/dL (12.0-16.0); LYMPHOCYTES # (AUTO) 1.2 (1.0-3.2); LYMPHOCYTES % 13.4 % (18.0-39.1); MEAN CORPUSCULAR HEMOGLOBIN 31.1 pg (28-32); MEAN CORPUSCULAR HGB CONC 33.1 g/dL (31-35); MEAN CORPUSCULAR VOLUME 94.1 fL (81-99); MONOCYTES # (AUTO) 1.2 (0.2-0.8); MONOCYTES % 13.5 % (4.4-11.3); NEUTROPHILS # (AUTO) 5.9 (2.1-6.9); PLATELET COUNT 168 x10e3/uL (140-360); RED BLOOD COUNT 4.05 x10e6/uL (3.6-5.1); RED CELL DISTRIBUTION WIDTH 15.3 % (11.7-14.4)
[2018-12-21 06:19] LABS: ANION GAP 8.7 mmol/L (8-16); BLOOD UREA NITROGEN 12 mg/dL (7-26); BUN/CREATININE RATIO 21 (6-25); CARBON DIOXIDE 26 mmol/L (22-29); CHLORIDE 106 mmol/L (98-107); CREATININE, SERUM 0.57 mg/dL (0.57-1.11); EST GLOMERULAR FILTRATION RATE > 60 ML/MIN (60-); GLUCOSE 105 mg/dL (74-118); MAGNESIUM 1.3 MG/DL (1.3-2.1); POTASSIUM 3.7 mmol/L (3.5-5.1); SODIUM 137 mmol/L (136-145)
[2018-12-21] MEDS: FUROSEMIDE 20 MG TAB PO SCH (08:05)
[2018-12-21] MEDS: VANCOMYCIN 1GM/NS 250 ML 250 ML IV SCH (08:05)
[2018-12-21] MEDS: POTASSIUM CHLORIDE 20 MEQ TAB CR PO SCH (08:05)
[2018-12-21] MEDS: AMLODIPINE BESYLATE 10 MG TAB PO SCH (08:06)
[2018-12-21] MEDS: OYST-CAL-D 500MG TABLET PO SCH (08:06)
[2018-12-21] MEDS ORDERED: NORVASC10 MG PO (08:12)
[2018-12-21] MEDS ORDERED: FUROSEMIDE20 MG PO (08:12)
[2018-12-21] MEDS ORDERED: TYLENOL # 31 EA PO (08:12)
[2018-12-21] MEDS ORDERED: KLOR-CON M2020 MEQ PO (08:12)
[2018-12-21] MEDS ORDERED: Calcium Carbonate PO (08:12)
[2018-12-21] MEDS: NYSTATIN 15 GM POWDER UD BTL TOP SCH (09:00)
[2018-12-21 10:22] LABS: EOSINOPHILS % (MANUAL) 4 % (0-7); LYMPHOCYTES % (MANUAL) 12 % (19-48); MONOCYTES % (MANUAL) 12 % (3.4-9.0); NEUTROPHILS % (MANUAL) 72 % (40-74)
[2018-12-21 10:23] LABS: HYPOCHROMASIA SLIGHT; PLATELET ESTIMATE ADEQUATE; PLATELET MORPHOLOGY COMMENT NORMAL; RBC MORPHOLOGY COMMENT NORMAL
[2018-12-21] MEDS ORDERED: VANCOMYCIN HCL1 GM IV (16:38)
--- NOTE | 2018-12-21 16:58 | Progress Note ---
DATE: December 21, 2018 Ms. Hennessy, her daughter called me yesterday. She was concerned that the leg is not getting any better. Today, upon examination, the leg looks a lot better. The redness has subsided. The erythema subsided. The patient has no complaints. I called the daughter again and reassured her that the leg looks much better. REVIEW OF SYSTEMS: Otherwise unremarkable. PHYSICAL EXAMINATION GENERAL: She is currently alert. Follows commands. Does not seem to be in acute distress. HEENT: She is not icteric. NECK: Supple. CHEST: Clear. HEART: S1 and S2. No murmur. ABDOMEN: Soft. EXTREMITIES: The leg seems to better and improved redness, but still there. IMPRESSION: Sepsis and bacteremia secondary to cellulitis with streptococcus. Discharge to intermediate with vancomycin 1 g IVPB q.12 h. for the next 10 days. Will follow CBC. Follow Chem panel biweekly. Vancomycin trough. PT and OT. Job#: [id number] OR
--- NOTE | 2018-12-21 19:15 | NUR ---
patient recieved awake, alert, lying quietly in bed. vss. no c/o pain noted. patient for possible d[facility] pending mri result. pm assessment complete. patient instructed to call for assistance when needed.
--- NOTE | 2018-12-21 19:57 | Diagnostic Imaging Report ---
TECHNIQUE: Magnetic resonance imaging of the LEFT tibia and fibula was performed WITHOUT injected contrast. HISTORY: Swelling COMPARISON: Left tibia and fibula December 20, 2018 FINDINGS: Metallic susceptibly artifact and inhomogeneous fat saturation partially limits regional evaluation about the arthroplasty. BONES: No acute fracture. No focal or infiltrative bone marrow replacing abnormality. SOFT TISSUES: Diffuse nonspecific soft tissue edema. No drainable fluid collection. IMPRESSION: 1. Nonspecific diffuse superficial soft tissue edema. 2. No osteomyelitis or acute fracture. 3. No soft tissue abscess. Signed by: Dr. Simeon Joe D.O., M.M.M. on 12/21/2018 7:53 PM
--- NOTE | 2018-12-21 20:30 | NUR ---
mri report called to [facility]. discharge order recieved. report called to Luz Elena at [facility]. patient informed of discharge and daughter notified.
--- NOTE | 2018-12-21 22:15 | NUR ---
Patient transfered to [facility] via [facility] at this time. vss at time of discharge. daughter at patients side.
--- NOTE | 2018-12-22 05:08 | Discharge Summary ---
ADMISSION DIAGNOSES 1. Fall. 2. Rhabdomyolysis. 3. Acute kidney injury versus chronic kidney disease. 4. Urinary tract infection. 5. Transaminitis. 6. Hyponatremia. 7. Hypokalemia. 8. Obesity. 9. Thrombocytopenia. 10. Hypocalcemia. DISCHARGE DIAGNOSES 1. Fall. 2. Rhabdomyolysis. 3. Acute kidney injury versus chronic kidney disease. 4. Rule out urinary tract infection. 5. Transaminitis. 6. Hyponatremia. 7. Hypokalemia. 8. Obesity. 9. Thrombocytopenia. 10. Hypocalcemia. HISTORY: No medical history. SURGICAL HISTORY: Bilateral knee surgery, bilateral hip surgery, hysterectomy, left arm surgery, bilateral pinky toe surgery. FAMILY HISTORY: Noncontributory. SOCIAL HISTORY: Noncontributory. HOSPITAL COURSE: An 83-year-old female, admits status post fall on Tuesday which was the day prior to admission around 3 p.m. while trying to reach for her clothes that fell. She denies dizziness, slipping and tripping. She fell to her back and was unable to get up. Her brother found her an unknown amount of hours later. She is denying any pain currently. On admission, the patient had a carotid Doppler which was negative. EKG showed normal sinus rhythm. X-ray of the T-spine is negative. Chest x-ray is negative. CT of the C-spine shows no acute fracture or dislocation. CT of the brain was negative. Left foot x-ray showed questionable nondisplaced fracture involving the base of the 4th proximal phalanx. X-ray of the left leg showed no evidence of fracture or malalignment. Blood culture is negative. Urine culture is negative. One blood culture actually came back for group strep B while the other one was negative. So, an EKG was done that showed an EF of 47%. Bilateral legs negative for DVT. While in the hospital, the patient developed cellulitis of the left leg. The patient's daughter was very worried about fracture, even though all the images were negative, so she demanded an MRI of the left leg which was also negative. Per the patient's request, she will transfer to [facility] for physical therapy. She will discharge with 10 more days of vancomycin IV per ID's request. She will also be started on Lasix daily, potassium daily, calcium carbonate b.i.d., Norvasc daily and Tylenol 3 p.r.n. The patient and daughter understand discharge instructions and agree to plan. Vital signs stable. The patient is afebrile. Dictated by Jane Carbone NP SOLO BALL MD Job#: [id number] GE
== END 2018-12-21 22:15 | DRG 872 ==
LOC: FSED 20:22 → ERHOLD 22:46 → MED/SURG3 12-16 01:57
PROVIDERS: ADMIT Internal Medicine; ATTEND Internal Medicine
DX: A41.9 Sepsis, unspecified organism (principal); E87.1 Hypo-osmolality and hyponatremia; N17.9 Acute kidney failure, unspecified; N39.0 Urinary tract infection, site not specified; L03.116 Cellulitis of left lower limb; T79.6XXA Traumatic ischemia of muscle, initial encounter; R55 Syncope and collapse; R62.7 Adult failure to thrive; S80.812A Abrasion, left lower leg, initial encounter; E87.6 Hypokalemia; W01.0XXA Fall on same level from slipping, tripping and stumbling without subsequent striking against object, initial encounter; Y93.01 Activity, walking, marching and hiking; Y92.019 Unspecified place in single-family (private) house as the place of occurrence of the external cause; S30.810A Abrasion of lower back and pelvis, initial encounter; N18.9 Chronic kidney disease, unspecified; R74.0 Nonspecific elevation of levels of transaminase and lactic acid dehydrogenase [LDH]; E66.9 Obesity, unspecified; Z68.36 Body mass index [BMI] 36.0-36.9, adult; D69.6 Thrombocytopenia, unspecified; E83.51 Hypocalcemia; B95.1 Streptococcus, group B, as the cause of diseases classified elsewhere
CPT/HCPCS: 36415; 70450; 71046; 72070; 72125; 80048; 80053; 80076; 81001; 81003; 82550; 82553; 82948; 83735; 83880; 84484; 85025; 87040; 87071; 87086; 87205; 93005; 93306; 93880; 93970; 97139; 99284; J0360; J0696; J1940; J3370; J7030; J7050